=== PATIENT | female | born 1960 | race African-American/Black ===

== ENCOUNTER → 2017-12-14 | Outpatient (CLI) | payer OTHER ==
--- NOTE | 2017-12-14 11:48 | KCIC ---
MRA of the brain without contrast 12/14/2017 Clinical History: Headaches. History of intracranial aneurysm. Technique: Using 3-D time of flight techniques, a MRA of the major arterial structures surrounding the [place] was performed. Additionally diffusion-weighted and FLAIR axial images of the brain were obtained. Findings: No previous imaging studies are available for comparison. The FLAIR images demonstrate the ventricles to be within normal limits in size and configuration. Patchy and small scattered areas of increased signal intensity are seen within the periventricular and subcortical white matter of both cerebral hemispheres consistent most likely with areas of mild small vessel ischemic disease. No area of restricted diffusion is seen. The MRA images are degraded by patient motion. A 2.8 mm saccular aneurysm is seen projecting superiorly from the left MCA trifurcation. No additional intracranial aneurysm is seen. No area stenosis or occlusion is noted. IMPRESSION: 2.8 mm saccular aneurysm is seen involving the left middle cerebral artery trifurcation. Electronically signed by: Hipolito Allison MD (12/14/2017 11:44 AM) [id number]
== END | disposition home or self-care (01) ==
LOC: KCIC MRI 09:09 → MERGE 09:30
PROVIDERS: ATTEND Family Medicine
DX: I67.1 Cerebral aneurysm, nonruptured (principal); I10 Essential (primary) hypertension; E11.9 Type 2 diabetes mellitus without complications; M17.11 Unilateral primary osteoarthritis, right knee
CPT/HCPCS: 70544

== ENCOUNTER → 2018-03-07 | Outpatient (CLI) | payer OTHER ==
--- NOTE | 2018-03-07 14:28 | RAD ---
DATE: 03/07/2018 EXAM: MAMMO MARIANN SCREENING BILATERAL HISTORY: Routine screening COMPARISON: 02/17/2017 This study was interpreted with the benefit of Computerized Aided Detection (CAD). Breast Density: SCATTERED The breast parenchyma shows scattered fibroglandular densities. Breast parenchyma level B. FINDINGS: 2-D and 3-D tomosynthesis imaging was performed in CC and MLO projections. There are benign-appearing lymph node type densities in the lateral aspects of both breasts which are unchanged. No new or enlarging breast densities are seen. Benign type calcification is present. No suspicious microcalcifications are seen. IMPRESSION: Stable mammograms without evidence of malignancy. BI-RADS CATEGORY: 2 BENIGN FINDING(S) RECOMMENDED FOLLOW-UP: 12M 12 MONTH FOLLOW-UP PQRS compliance statement: Patient information was entered into a reminder system with a target due date for the next mammogram. Mammography is a sensitive method for finding small breast cancers, but it does not detect them all and is not a substitute for careful clinical examination. A negative mammogram does not negate a clinically suspicious finding and should not result in delay in biopsying a clinically suspicious abnormality. "Our facility is accredited by the [employer] Mammography Program."
== END | disposition home or self-care (01) ==
LOC: MAMMO 09:25
PROVIDERS: ATTEND Family Medicine
DX: Z12.31 Encounter for screening mammogram for malignant neoplasm of breast (principal)
CPT/HCPCS: 77063; 77067

== ENCOUNTER → 2019-04-18 | Outpatient (CLI) | payer MEDICAID ==
--- NOTE | 2019-04-18 18:34 | RAD ---
DATE: 04/18/2019. EXAM: DIGITAL SCREEN BILAT W/CAD. HISTORY: Routine mammographic screening. COMPARISON: 03/07/2018. This study was interpreted with the benefit of Computerized Aided Detection (CAD). FINDINGS: Breast Density: SCATTERED The breast parenchyma shows scattered fibroglandular densities. Breast parenchyma level B.. There are no suspicious masses, microcalcifications or architectural distortion. Scattered and vascular calcifications are benign. The parenchymal pattern is stable. BI-RADS CATEGORY: 2 BENIGN FINDING(S). RECOMMENDED FOLLOW-UP: 12M 12 MONTH FOLLOW-UP. PQRS compliance statement: Patient information was entered into a reminder system with a target due date 04/18/2020 for the next mammogram. Mammography is a sensitive method for finding small breast cancers, but it does not detect them all and is not a substitute for careful clinical examination. A negative mammogram does not negate a clinically suspicious finding and should not result in delay in biopsying a clinically suspicious abnormality. "Our facility is accredited by the [employer] Mammography Program."
== END | disposition home or self-care (01) ==
LOC: MAMMO 10:55
PROVIDERS: ATTEND Nurse Practitioner Family
DX: Z12.31 Encounter for screening mammogram for malignant neoplasm of breast (principal); N64.89 Other specified disorders of breast
CPT/HCPCS: 77067

== ENCOUNTER 2021-05-06 19:21 | Emergency (ER) | payer MEDICAID, MEDICARE ==
[~2021-05-06] VITALS: Ht 162.6 cm; Wt 93.0 kg
[2021-05-07] MEDS ORDERED: IV NORMAL SALINE 1000ML BAG 1,000 ML IV SCH (02:30)
[2021-05-07] MEDS ORDERED: VANCOMYCIN PER PHARMACY MC PRN (02:30)
--- NOTE | 2021-05-07 02:30 | PHYS DOC ---
Past Medical History Additional Past Medical Histor: CARDIOMYOPATHY,SARCODOSIS,COVID,"BRAIN ANYRYSM" Past Surgical History: Hysterectomy, Other Additional Past Surgical Histo: CARDIAC CATH Smoking Status: Never Smoker Alcohol Use: None General Adult EDM: Chief Complaint: ALLERGIC REACTION HPI: HPI: 60-year-old female past medical history of diabetes, hypertension and hyperlipidemia, presents the ED with complaints of pruritic rash that started last night with associated right toe swelling and pain. Reports associated fever for the past 2 days. States she was admitted at [facility] from April 05 through the for COVID-19 infection that did not require any mechanical ventilation, and "blood infection from my tooth." Patient's words her only new medication is subcutaneous insulin. Not recall any new lotions, perfumes, environmental exposures or food. No history of angioedema or anaphylaxis but does states she has had an allergic reaction in the past, "but nothing like this." Meds reviewed-is on lisinopril. Reports no associated head or neck swelling or difficulties breathing. Reports she did not take her occasions today out of fear of allergic reaction. Review of Systems: Review of Systems: Constitutional: Denies neck stiffness or lethargy Eyes: Denies change in visual acuity. [] HENT: Denies nasal congestion or sore throat. [] Respiratory: Denies cough or shortness of breath. [] Cardiovascular: Denies chest pain or edema. [] GI: Denies abdominal pain, nausea, vomiting, bloody stools or diarrhea. [] : Denies dysuria or hematuria Musculoskeletal: Denies back pain or flank pain. [] Integument: Denies diaphoresis or desquamation Neurologic: Denies headache, neck stiffness, focal weakness or sensory changes. [] Endocrine: Denies polyuria or polydipsia. [] Lymphatic: Denies swollen glands. [] Psychiatric: Denies depression or anxiety. [] Heart Score: C/O Chest Pain: No Risk Factors: Risk Factors: DM, Current or recent (<one month) smoker, HTN, HLP, family history of CAD, obesity. Risk Scores: Score 0 - 3: 2.5% MACE over next 6 weeks - Discharge Home Score 4 - 6: 20.3% MACE over next 6 weeks - Admit for Clinical Observation Score 7 - 10: 72.7% MACE over next 6 weeks - Early Invasive Strategies Current Medications: Current Medications Medications (Trade) Dose Ordered Sig/Rashard Start Time Stop Time Status Last Admin Dose Admin Sodium Chloride 1,000 ml @ 1,000 mls/hr Q1H 05/07/21 02:30 05/07/21 03:29 UNV Allergies: Allergies: Allergies Coded Allergies Type Severity Reaction Last Updated Verified Penicillins Allergy Severe rash "my lip swells" 05/07/21 Yes cephalexin Allergy Severe rash and lip swelling 05/07/21 Yes erythromycin base Allergy Severe rash and "my lip swells" 05/07/21 Yes Physical Exam: PE: Constitutional: Well developed, well nourished, no acute distress, non-toxic appearance, hypertensive HENT: Normocephalic, atraumatic, no angioedema, no mucous membrane ulcers or l esions Eyes: EOMI, conjunctiva normal, no discharge. Neck: Normal range of motion, supple, Cardiovascular: S1/2 present, tachycardic Lungs & Thorax: Speaking in full sentences, bilateral equal chest rise, no tachypnea or increased work of breathing Abdomen: soft, no tenderness, Skin: Warm, dry, large/warm uniform erythema over posterior arms, small < 0.5cm slightly raised macules over arms/chest/upper back and upper abdomen, negative Nikolsky sign Back: No midline tenderness, no CVA tenderness. [] Extremities: No tenderness, no cyanosis, no lower extremity edema, right toe with no erythema or swelling -range of motion intact, no signs of trauma Neurologic: Alert and oriented X 3, no focal deficits noted. [] Psychologic: Affect normal, judgement normal, mood normal. [] Current Patient Data: Labs: Laboratory Tests Test 05/06/21 22:53 Glucose (Fingerstick) 340 mg/dL (70-99) H Vital Signs: Vital Signs Date Time Temp Pulse Resp B/P (MAP) Pulse Ox O2 Delivery O2 Flow Rate FiO2 05/07/21 01:12 97.9 109 18 217/118 (151) 94 Room Air 97.9 EKG: EKG: [] Radiology/Procedures: Radiology/Procedures: IMAGING REPORT Signed PATIENT: EVE ANTHONY ACCOUNT: [id number] : 1960 LOCATION: ER AGE: 60 SEX: F EXAM STATUS: REG ER ORD. PHYSICIAN: NAVYA CURTIS DO REASON: right toe pain PROCEDURE: TOES RIGHT EXAM: 3 views right foot DATE: 05/07/2021 2:25 AM INDICATION: Reason: right toe pain / Spl. Instructions: / History: . COMPARISON: No Prior FINDINGS/ IMPRESSION: Hallux valgus. Hallux MTP joint degenerative changes are seen. Mild forefoot soft tissue swelling. No evidence of acute fracture or dislocation. Electronically signed by: Epifanio Everett MD (05/07/2021 2:47 AM) [facility] DICTATED and SIGNED BY: EPIFANIO EVERETT MD DATE: 05/07/21 [id number] IMAGING REPORT Signed PATIENT: EVE ANTHONY ACCOUNT: [id number] : 1960 LOCATION: ER AGE: 60 SEX: F EXAM STATUS: REG ER ORD. PHYSICIAN: NAVYA CURTIS DO REASON: rash PROCEDURE: PORTABLE CHEST 1V EXAM: AP View of the chest DATE: 05/07/2021 2:25 AM INDICATION: Reason: rash / Spl. Instructions: / History: COMPARISON: No Prior FINDINGS: The heart is not enlarged. Bilateral mid lung and lung base airspace opacities likely consolidative process such as pneumonia. Trace right pleural effusion. No pneumothorax. IMPRESSION: Bilateral parenchymal airspace opacities with trace right pleural effusion likely consolidative process such as pneumonia although pulmonary edema could also have this appearance. Electronically signed by: Epifanio Everett MD (05/07/2021 2:45 AM) [facility] DICTATED and SIGNED BY: EPIFANIO EVERETT MD DATE: 05/07/21 [id number] Course & Med Decision Making: Course & Med Decision Making Pertinent Labs and Imaging studies reviewed. (See chart for details) Concern for cellulitis to both posterior arms, allergic reaction and right toe soft tissue swelling-cannot appreciate any toe infection/paronychia. Suspect patients' source of allergic reaction is her insulin-pt has no true anaphylaxis or angioedema. Will prescribe clindamycin, a probiotic, Pepcid and Benadryl. Allergic reaction has not worsened while emergency department. Patient sleeping comfortably in the ED. Will treat with Pepcid and dexamethasone in the ED. I discouraged scratching of the skin. Will discharge home with strict ED return precautions were given for worsening rash, fever, head or neck swelling or diarrhea. Encouraged urgent outpatient follow-up with PMD repeat evaluation and install and repair technician for testing. Life-threatening processes were considered but are low suspicion at this time, given history, physical exam and ED workup. Pt was educated on all prescription medications and adverse effects. All patient's questions were answered and pt was stable at time of discharge. Life/limb-threatening differential includes but is not limited to, erythema multiforme, mojica-yolette syndrome, toxic epidermal necrolysis, staphylococcal scalded skin syndrome, necrotizing fasciitis/myositis/cellulitis, purpura fulminans, heparin or warfarin induced skin necrosis, angioedema, anaphylaxis drug rash, disseminated intravascular coagulation, disseminated gonococcal disease, vasculitis, septicemia, petechial disorder or coagulopathy, viral exanthem, Kawasaki's disease or life-threatening burn requiring burn center management or escharotomy. I have spoken with the patient and/or caregivers. I explained the patient's condition, diagnoses and treatment plan based on the information available to me at this time. I have answered the patient and/or caregiver's questions and addressed any concerns. The patient and/or caregivers have a good understanding of patient's diagnosis, condition and treatment plan as can be expected at this point. Vital signs have been stable. Patient's condition is stable and appropriate for discharge from the emergency department. Patient will pursue further outpatient evaluation with primary care physician or other designated or consulting physician as outlined in the discharge instructions. The patient and/or caregivers are agreeable to this plan of care and follow-up instructions have been explained in detail. The patient and/or caregivers have received these instructions in written form and have expressed an understanding of the discharge instructions. The patient and/or caregivers are aware that any significant change of condition or worsening of symptoms should prompt immediate return to this or the closest emergency department or call to 911. Ellen Disclaimer: Ellen Disclaimer: This electronic medical record was generated, in whole or in part, using a voice recognition dictation system. Departure Departure Impression: Primary Impression: Cellulitis of left upper arm Additional Impressions: Cellulitis of right upper arm Allergic reaction Disposition: HOME / SELF CARE / HOMELESS Condition: STABLE Referrals: NO PCP (PCP) Follow-up with your primary care physician in 24 to 48 hours for re-evaluation OR FOLLOW UP WITH FAMILY MEDICINE: [address] [place] [address] Patient Instructions: Cellulitis, Hives Additional Instructions: [facility]-for [facility] Call for appointment [phone] [facility] on the [facility] [address], [address] (Address for directions and navigation systems: [address] [place] [address]) EMERGENCY DEPARTMENT GENERAL DISCHARGE INSTRUCTIONS Thank you for coming to [facility] Emergency Department (ED) today and trusting us with you care. We trust that you had a positive experience in our Emergency Department. If you wish to speak to the department management, you may call the Director at [phone]. YOUR FOLLOW UP INSTRUCTIONS ARE FOLLOWS: 1. Do you have a private Doctor? If you do not have a private doctor, please ask for a resource list of physicians or clinics that may be able to assist you with follow up care. 2. The Emergency Physicain has interpreted your x-rays. The X-Ray specialist will also review them. If there is a change in the findings, you will be notified in 48 hours when at all possible. 3. A lab test or culture has been done, your results will be reviewed and you will be notified if you need a change in treatment. ADDITIONAL INSTRUCTIONS AND INFORMATION: 1. Your care today has been supervised by a physician who is specially trained in emergency care. Many problems require more than one evaluation for a complete diagnosis and treatment. We recommend that you schedule your follow up appointment as recommended to ensure complete treatment of you illness or injury. If you are unable to obtain follow up care and continue to have a problem, or if your condition worsens, we recommend that you return to the ED. 2. We are not able to safely determine your condition over the phone nor are we able to give sound medical advice over the phone. For these safety reasons, if you call for medical advice we will ask you to come to the ED for further evaluation. 3. If you have any questions regarding these discharge instructions please call the ED at [phone]. SAFETY INFORMATION: In the interest of safety, wellness, and injury prevention; we encourage you to wear your sealbelt, if you smoke; quite smoking, and we encourage family to use a protective helmet for bicycling and other sporting events that present an increased risk for head injury. IF YOUR SYMPTOMS WORSEN OR NEW SYMPTOMS DEVELOP, OR YOU HAVE CONCERNS ABOUT YOUR CONDITION; OR IF YOUR CONDITION WORSENS WHILE YOU ARE WAITING FOR YOUR FOLLOW UP APPOINTMENT; EITHER CONTACT YOUR PRIMARY CARE DOCTOR, THE PHYSICIAN WHOSE NAME AND NUMBER YOU WERE GIVEN, OR RETURN TO THE ED IMMEDIATELY. Scripts Diphenhydramine Hcl (DIPHENHYDRAMINE HCL) 25 Mg Tablet 1 TAB PO Q6-8HRS PRN for ITCHING MDD 100mg for 30 Days, #15 TAB 0 Refills Prov: NAVYA CURTIS DO 05/07/21 Famotidine (PEPCID) 20 Mg Tablet 20 MG PO BID for 5 Days, #10 TAB Prov: NAVYA CURTIS DO 05/07/21 Lactobacillus Acidophilus (Probiotic Acidophilus) 1 Each Tablet 1 TAB PO DAILY for 14 Days, #14 TAB 0 Refills Prov: NAVYA CURTIS DO 05/07/21 Clindamycin Hcl (CLINDAMYCIN HCL) 150 Mg Capsule 2 CAP PO QID for 10 Days, #80 CAP Prov: NAVYA CURTIS DO 05/07/21 NAVYA CURTIS DO May 07, 2021 02:30
[2021-05-07] MEDS ORDERED: VANCOMYCIN 2 GM in IV NORMAL SALINE 500ML BAG 500 ML IV ONE (02:45)
--- NOTE | 2021-05-07 02:48 | RAD ---
EXAM: AP View of the chest DATE: 05/07/2021 2:25 AM INDICATION: Reason: rash / Spl. Instructions: / History: COMPARISON: No Prior FINDINGS: The heart is not enlarged. Bilateral mid lung and lung base airspace opacities likely consolidative process such as pneumonia. T race right pleural effusion. No pneumothorax. IMPRESSION: Bilateral parenchymal airspace opacities with trace right pleural effusion likely consolidative proce ss such as pneumonia although pulmonary edema could also have this appearance. Electronically signed by: Epifanio Teran MD (05/07/2021 2:45 AM) [facility]
--- NOTE | 2021-05-07 02:49 | RAD ---
EXAM: 3 views right foot DATE: 05/07/2021 2:25 AM INDICATION: Reason: right toe pain / Spl. Instructions: / History: . COMPARISON: No Prior FINDINGS/ IMPRESSION: Hallux valgus. Hallux MTP joint degenerative changes are seen. Mild forefoot soft tissue swelling. No evidence of acute fracture or dislocation. Electronically signed by: Epifanio Teran MD (05/07/2021 2:47 AM) [facility]
[2021-05-07 03:05] LABS: BASO # 0.1 x10^3/uL (0.0-0.2); BASO % 1 % (0-3); EOS # 0.3 x10^3/uL (0.0-0.7); EOS % 3 % (0-3); HEMATOCRIT 32.2 % (36.0-47.0); HEMOGLOBIN 10.8 g/dL (12.0-15.5); LYMPH # 1.9 x10^3/uL (1.0-4.8); LYMPH % 19 % (24-48); MEAN CORPUSCULAR HEMOGLOBIN 29 pg (25-35); MEAN CORPUSCULAR HGB CONC 34 g/dL (31-37); MEAN CORPUSCULAR VOLUME 86 fL (79-100); MONO # 0.7 x10^3/uL (0.0-1.1); MONO % 7 % (0-9); NEUT % 70 % (31-73); PLATELET COUNT 383 x10^3/uL (140-400); RED BLOOD COUNT 3.73 x10^6/uL (3.50-5.40); RED CELL DISTRIBUTION WIDTH 13.4 % (11.5-14.5)
[2021-05-07 03:16] LABS: CALCIUM 9.2 mg/dL (8.5-10.1); CREATININE 0.8 mg/dL (0.6-1.0); GFR 88.2; POTASSIUM 3.8 mmol/L (3.5-5.1)
[2021-05-07 03:28] LABS: DIRECT BILIRUBIN 0.1 mg/dL (0.0-0.2); MAGNESIUM 1.8 mg/dL (1.8-2.4); TOTAL BILIRUBIN 0.2 mg/dL (0.2-1.0); TOTAL PROTEIN 8.1 g/dL (6.4-8.2)
--- NOTE | 2021-05-07 04:01 | NUR ---
Pharmacy Vancomycin Dosing Note S:Consulted to monitor and dose vancomycin started 05/07/21. O:EVE ANTHONY is a 60 year old F with Cellulitis . Height: 5 feet, 4 inches Weight: 93.0 kg [place] Body Weight: 54.70 Adjusted Body Weight: 70.02 Dosing Weight: Actual Other Antibiotics: LABS: Last BUN: 15 Last Creatinine: 0.8 Creatinine Clearance: 81 mL/min Last WBC: 10 Last Procalcitonin: Tmax (past 24 hours): 97.9 Microbiology: I/O: Drug Levels: Last level: on at Last dose given 05/07/21 at 0330 Vancomycin Dosing: Loading Dose: 2000 mg x1 Dosing Weight: Actual Target Trough: 10-20 A: Based on: WEIGHT, CRCL~82, P: 1. INITIATE Vancomycin 1250 mg IV q12h AFTER 2000 MG LOADING DOSE 2. Follow up Trough level on 05/08/21 at 1500 3. Pharmacy will continue to monitor, follow and adjust therapy as needed. ANJUM ELIZONDO [facility], 05/07/21 1147
--- NOTE | 2021-05-07 04:33 | EKG ---
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
[2021-05-07] MEDS ORDERED: DIPH25TA24 PO (05:27)
[2021-05-07] MEDS ORDERED: LACT1TAB24 PO (05:27)
[2021-05-07] MEDS ORDERED: CLIN150C16 PO (05:27)
[2021-05-07] MEDS ORDERED: FAMO-63 PO (05:27)
[2021-05-07 05:30] VITALS: BP 185/99
[2021-05-07] MEDS ORDERED: DEXAMETHASONE 4 MG TABLET PO ONE (05:30)
[2021-05-07] MEDS ORDERED: LACTOBACILLUS RHAMNOSUS GG 1 CAPSULE. PO SCH (09:00)
[2021-05-07] MEDS ORDERED: VANCOMYCIN 1.25 GM in IV NORMAL SALINE 250ML 250 ML IV SCH (15:30)
== END 2021-05-07 05:51 | disposition home or self-care (01) ==
LOC: ER 19:21
DX: L03.114 Cellulitis of left upper limb (principal); L03.113 Cellulitis of right upper limb; T78.40XA Allergy, unspecified, initial encounter; M20.11 Hallux valgus (acquired), right foot
CPT/HCPCS: 36415; 71045; 73660; 80048; 80076; 82010; 82962; 83605; 83690; 83735; 83880; 84484; 85025; 87040; 93005; 96365; 99285; J3370; J7030; J7040